=== PATIENT | male | born 1985 | race Caucasian/White ===

== ENCOUNTER 2021-06-04 06:10 | Emergency (ER) | payer BC, SELFPAY ==
[2021-06-04 06:15] VITALS: BP 145/92; PULSE 54; RESP 18; TEMP 36.5; O2SAT 100
--- NOTE | 2021-06-04 06:57 | ED.GENADUL_ITS ---
Discharge Plan Disposition Patient Disposition: HOME Condition: Good Discharge Details Clinical Impression: Chronic pain in right foot Primary Care Provider: Lina Gonzalez ED Provider: Wily Damon Home Meds and New Rx's Prescriptions: Continued metoprolol succinate 50 mg Capsule,Sprinkle,Er 24hr 50 mg PO DAILY RF: 0 Discharge Instructions Additional Instructions: At this time the x-ray shows no evidence of foreign body in your foot, I do not see any evidence of foreign body on my ultrasound, and our procedure did not elicit the presence of any large foreign body. Please keep your foot clean and dry at all times. Make sure to keep the area where we cut the callus off clean and dry. As we discussed together, please use the walking boot, and use a gel cushion with the central area cut out to take any pressure off of the callused area to allow it to heal. If you notice any worsening of your symptoms, or any new symptoms such as vomiting, diarrhea, fever, chills, shortness of breath, chest pain, numbness, weakness, or fainting , please return immediately to the emergency department for reevaluation. Please follow up with your primary care provider as soon as possible for reassessment and reevaluation. As always, it was a pleasure participating in your medical care today. Referrals: Lina Gonzalez [Primary Care Provider] - Medical Decision Making 35-year-old male with a past medical history of hypertension who presents today for evaluation of right foot pain. Patient states that weeks ago, or may be even over a month ago he stepped on something, and has had pain in his foot ever since. Pain is worse with walking. Improved when applying the weight to the foot. He denies numbness or tingling. He states that over the last few weeks he, and friends have tried to gain what ever it was out. He has not been successful. He denies any other complaints. He denies any other modifying factors. He denies any fever or chills. Tetanus is up-to-date. Physical exam exam demonstrates a notably large callus over the second-third, MTP joint. No evidence of redness or drainage to suggest infection. Bedside ultrasound shows no evidence of foreign body that I can detect. The foot was anesthetized, care was taken and the callus was removed with an 11 blade. Beneath the callus appeared to be normal tissue in the foot. No evidence of granulation tissue or abscess. No foreign body that I could detect. With no clear evidence of foreign body on ultrasound or exam, we will get an x-ray to see if there is anything else that can be visualized radiographically. 7:37 AM X-ray results show no evidence of foreign body. Patient doing well. At this time I do feel that the patient be safely discharged home. There is no evidence of infection or foreign body need surgical intervention at this time. Will recommend and give walking boot to go home with, as well as recommendation for gel insole with a central area cut out to alleviate pressure on that area to allow for good wound healing. Discussed red flags which to return. I have extensively reviewed the treatment plan and discharge instructions with the patient. I have addressed all patient concerns at this time. The patient was made aware of what symptoms to monitor for that would warrant a return to the emergency department. Discussed the plan with the patient, they demonstrate verbal understanding and agreement with our assessment and plan at this time. The documentation in this chart was dictated using [employer] dictation software. Please excuse any dictation errors. FINDINGS: Bones/joints: No acute fracture or dislocation. Accessory ossicle adjacent to the cuboid bone Soft tissues: No radiopaque foreign body or significant swelling IMPRESSION: No acute findings. No radiopaque foreign body detected Thank you for allowing us to participate in the care of your patient. Dictated and Authenticated by: Rishabh Fernandez MD 06/04/2021 7:19 AM Eastern Time ([place] & [place]) HPI General Date/Time Provider Initiated Documentation: 06/04/21 06:11 . HPI Narrative: 35-year-old male with a past medical history of hypertension who presents today for evaluation of right foot pain. Patient states that weeks ago, or may be even over a month ago he stepped on something, and has had pain in his foot ever since. Pain is worse with walking. Improved when applying the weight to the foot. He denies numbness or tingling. He states that over the last few weeks he, and friends have tried to gain what ever it was out. He has not been successful. He denies any other complaints. He denies any other modifying factors. He denies any fever or chills. Tetanus is up-to-date. Related Data Home Medications Medication Instructions Recorded Confirmed metoprolol succinate 50 mg PO DAILY 12/07/21 12/07/21 Allergies Allergy/AdvReac Type Severity Reaction Status Date / Time No Known Allergies Allergy Unverified 06/04/21 06:18 General Stated Complaint: Laceration KARIE: 4 Review of Systems All systems reviewed & are unremarkable except as noted in HPI and below [facility] Active Problem List (Updated 06/04/21 @ 07:33 by Wily Damon DO) Chronic pain in right foot (Acute) Social History Smoking/Tobacco Use Status: Former Tobacco Use Smoking risk assessment performed?: Yes Alcohol Intake: former Drug use: Daily Substance use type: marijuana Do you feel safe at home: Yes Do you feel safe in your relationship?: Yes Exam Narrative Exam Narrative: 1.Const: Well-nourished, Well-developed, appearing stated age 2.Eyes: PERRL, no conjunctival injection, and symmetrical lids. 3.ENT: Atraumatic external nose and ears. Moist MM. Neck: Symmetric, trachea midline, No thyromegaly. 4.CVS: +S1/S2, No murmurs or gallops. Peripheral pulses 2+ and equal in all extremities. Brisk capillary refill in all extremities. 5.RESP: Unlabored respiratory effort. Clear to auscultation bilaterally. No wheezes rales or rhonchi 6.GI: Soft, Nontender/Nondistended, No hepatosplenomegaly. No guarding or rebound. 7.MSK: Normocephalic/Atraumatic, Extremities w/o deformity or ttp No cyanosis or clubbing, Normal movement of all extremities. The base of the patient's right foot at the 2nd-3rd MTP joint, demonstrates a notably large callus, but no redness or drainage whatsoever. There appears to be a central area that appears slightly atypical compared to the rest, but is otherwise unremarkable. Bedside ultrasound does not demonstrate any evidence of clear deformity or foreign body. Callus is notably large, minimally tender on palpation. 8.Skin: Warm, Dry. No rashes or lesions. 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 Sensation grossly intact, no focal neurologic deficits. 10.Psych: (AAO) x3. Appropriate mood and affect Course Vital Signs Vital signs: Vital Signs Temperature 36.5 C 06/04/21 06:15 Pulse 54 L 06/04/21 06:15 Respiratory Rate 18 06/04/21 06:15 Blood Pressure 145/92 H 06/04/21 06:15 Pulse Oximetry 100 06/04/21 06:15 Temperature 36.5 C 06/04/21 06:15 Temperature Source Skin 06/04/21 06:15 Pulse 54 L 06/04/21 06:15 Respiratory Rate 18 06/04/21 06:15 Respiratory Effort Non-Labored 06/04/21 06:19 Blood Pressure 145/92 H 06/04/21 06:15 Pulse Oximetry 100 06/04/21 06:15 Pain Level 10 06/04/21 06:15
--- NOTE | 2021-06-04 07:10 | DI.RAD_ITS ---
Exam(s) XR FOOT RT COMPLETE EXAM: XR FOOT RT COMPLETE CLINICAL HISTORY: r/o foreign body at 2-3 mtp joint. TECHNIQUE: 2D digital imaging was performed of the right foot. Three images were obtained. AP, obl ique and lateral views were obtained. COMPARISON: No exams were available for comparison FINDINGS: BONES: No acute fracture is present. No bony destructive lesion is seen. JOINTS: No dislocation present. SOFT TISSUE: Normal. No radiopaque foreign body. IMPRESSION: Unremarkable radiographs of the right foot. No radiopaque foreign body. DATA REPOSITORY: RADIATION DOSE DELIVERED:
--- NOTE | 2021-06-04 07:20 | DI.VRAD_ITS ---
PROCEDURE INFORMATION: Exam: XR Right Foot Exam date and time: 06/04/2021 6:52 AM Age: 35 years old Clinical indication: Pain; Foot; Right; Patient HX: R/O foreign body at 2-3 mtp joint. TECHNIQUE: Imaging protocol: XR Right foot. Views: 3 or more views. COMPARISON: No relevant prior studies available. FINDINGS: Bones/joints: No acute fracture or dislocation. Accessory ossicle adjacent to the cuboid bone Soft tissues: No radiopaque foreign body or significant swelling IMPRESSION: No acute findings. No radiopaque foreign body detected Dictated and Authenticated by: Rishabh Fernandez MD. Ordering:HUSSEIN Julien MD
== END 2021-06-04 07:39 | disposition home or self-care (01) ==
PROVIDERS: Emergency Provider Student in an Organized Health Care Education/Training Program; PCP Internal Medicine
DX: M79.671 Pain in right foot (principal); W22.8XXA Striking against or struck by other objects, initial encounter
CPT/HCPCS: 99283; 73630